=== PATIENT | female | born 2000 | race American Indian/Alaskan Native ===

== ENCOUNTER 2021-01-22 04:28 | Emergency (ER) | payer OTHER ==
[2021-01-22 04:41] VITALS: BP 134/76
[2021-01-22] MEDS ORDERED: IBUPROFEN 600 MG TAB PO ONE (07:23)
[2021-01-22] MEDS ORDERED: CYCLOBENZAPRINE 10 MG TAB PO ONE (07:23)
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
[2021-01-22] MEDS ORDERED: LIDOCAINE (1%) 10 MG/1 ML VIAL 20 ML MDV INFILTRATI ONE (08:55)
[2021-01-22] MEDS ORDERED: NEOMY 3.5 MG/BACIT 400 UNITS/POLY B 5000 UNITS/GM OINT PACKET TP ONE (09:27)
[2021-01-22] MEDS ORDERED: DIPHtheria,PERTUSSIS(ACELL),TETANUS VACCINE/PF 0.5 ML VIAL IM ONE (09:27)
--- NOTE | 2021-01-22 09:38 | XRay Report ---
RIGHT FOOT 2 VIEW(S) INDICATION / CLINICAL INFORMATION: Calcaneal foreign body post removal COMPARISON: 01/22/2021 ankle radiographs FINDINGS: BONES / JOINT(S): No acute fracture or subluxation. No significant arthritis. SOFT TISSUES: Unchanged appearance of the punctate foreign object at the plantar heel soft tissues, l ikely glass as previously noted. Finding is approximately 0.5-1 cm from the cutaneous surface. ADDITIONAL FINDINGS: None. Signer Name: Elijah Monroe MD Signed: 01/22/2021 9:34 AM Workstation Name: [id number]
== END 2021-01-22 10:15 | disposition home or self-care (01) ==
LOC: ED 04:28
DX: S86.919A Strain of unspecified muscle(s) and tendon(s) at lower leg level, unspecified leg, initial encounter (principal); S93.409A Sprain of unspecified ligament of unspecified ankle, initial encounter; S90.851A Superficial foreign body, right foot, initial encounter; S09.90XA Unspecified injury of head, initial encounter; Z79.899 Other long term (current) drug therapy; V49.59XA Passenger injured in collision with other motor vehicles in traffic accident, initial encounter; Y92.410 Unspecified street and highway as the place of occurrence of the external cause; Y93.89 Activity, other specified; Y99.8 Other external cause status
CPT/HCPCS: 73590; 73610; 73620; 90471; 90715; 99283; A6250